=== PATIENT | female | born 1985 ===

== ENCOUNTER 2022-07-01 05:27 | Day surgery (SDC) | payer OTHER ==
[~2022-07-01] VITALS: Ht 175.3 cm; Wt 68.5 kg
[2022-07-01] MEDS ORDERED: TRAM1TAB98 PO (11:54)
== END 2022-07-01 14:05 | disposition home or self-care (01) ==
LOC: CIR.AMB 05:27
PROVIDERS: ATTEND Surgery
DX: K80.10 Calculus of gallbladder with chronic cholecystitis without obstruction (principal); R16.0 Hepatomegaly, not elsewhere classified